=== PATIENT | male | born 1985 | race Hispanic/Latino ===

== ENCOUNTER → 2022-08-13 | Outpatient (CLI) | payer OTHER ==
[2022-08-13 09:52] LABS: PLATELET COUNT, AUTOMATED 326 10^3/uL (150-450)
[2022-08-13 10:00] LABS: COLLAGEN EPINEPHRINE 138 SECONDS (74-162)
[2022-08-13 10:05] LABS: INR 0.93; PROTHROMBIN TIME 12.7 SECONDS (12.5-14.5)
[2022-08-13 10:06] LABS: PARTIAL THROMBOPLASTIN TIME 30.6 SECONDS (24.8-34.2)
== END ==
LOC: M LAB 09:10
PROVIDERS: ATTEND Physician Assistant
DX: M54.16 Radiculopathy, lumbar region (principal)